=== PATIENT | female | born 1995 | race Caucasian/White ===

== ENCOUNTER 2021-06-15 05:53 | Emergency (ER) | payer OTHER ==
[2021-06-15 09:11] VITALS: BP 122/67; PULSE 78; TEMP 98.1
== END 2021-06-15 10:00 | disposition home or self-care (01) ==
LOC: JER 05:53
DX: O26.892 Other specified pregnancy related conditions, second trimester (principal); R10.9 Unspecified abdominal pain; Z3A.20 20 weeks gestation of pregnancy
CPT/HCPCS: 99281-25